=== PATIENT | female | born 1990 | race Caucasian/White ===

== ENCOUNTER 2016-05-14 09:11 | Emergency (ER) | payer OTHER ==
--- NOTE | ~2016-05-14 | CR63 ---
[facility] A Service of [facility] & [facility] RADIOLOGY TEXT RESULTS PATIENT: MARCO ANTONIO FERRERA LOCATION: SED : 88 UNIT #: [id number] AGE: [address]: Nuha Gandhi MD SEX: F ORDER DR: [id number] [address] [address] [id number] E MR#: [id number] Acc #: [id number] NAME: MARCO ANTONIO FERRERA : 1990 SEX: F STUDY DATE/TIME: 05/14/2016 10:31 UNIT: SED ROOM: STUDY DESCRIPTION: CR Chest 2 View Attending Physician: Nuha Gandhi M.D. Ordering Physician: Nuha Gandhi M.D. Primary Care Physician: Primary Care Physician No MEDICAL IMAGING REPORT This report is preliminary unless electronic signature is present. EXAM PA and lateral chest INDICATIONS 26-year-old female with cough and congestion for one and one-half weeks. Comparison with 05/10/2011 FINDINGS Lungs are well expanded and clear. Heart size normal. Visualized osseous structures unremarkable. Right upper quadrant surgical clips. IMPRESSION Negative chest Dictated by... Howard Galloway M.D. THIS IS AN ELECTRONICALLY VERIFIED REPORT Howard Galloway M.D. at 05/14/2016 4:28 PM ELY/hossein TD: 05/14/2016 11:55 JOB #: [id number] MEDICAL IMAGING REPORT Page 1 of 1
[~2016-05-14 09:11] MED LIST: ALDACTONE; ALDACTONE PO; BACTROBAN22 GM EXT; BIRTH CONTROL PILL; CELEXA PO; CELEXA10 MG PO; CIPRO PO; DIFLUCAN PO; DOXYCYCLINE HY100 M3 PO; FAMOTIDINE20 M1 PO; FIORINAL W/CODE1 CA1 PO; FLAGYL PO; FLONASE 0.05% N16 GM; K-DUR20 ME1 PO; LEXAPRO; MOBIC PO; MUCINEX DM1 TAB.SR . PO; MULTI VITAMIN1 EACH PO; NO MEDICATIONS; PRENATAL W/FOLI1 TA1 PO; ROBITUSSIN A-C S5 ML PO; VICODIN 5/1 TAB 5/50 PO; VISTARIL; VOLTAREN75 MG PO; ZITHROMAX PO; ZOFRAN ODT4 MG PO; ZOFRAN PO
[2016-05-14 10:04] LABS: URINE SOURCE CLEAN CATCH
[2016-05-14 10:06] LABS: URINE APPEARANCE CLEAR; URINE BILIRUBIN NEG (NEG); URINE BLOOD NEG (NEG); URINE COLOR YELLOW; URINE GLUCOSE NEG (NORM); URINE KETONE NEG (NEG); URINE LEUKOCYTE ESTERASE NEG (NEG); URINE NITRATE NEG (NEG); URINE PH 6.5 (5-8); URINE PROTEIN NEG (NEG); URINE UROBILINOGEN 0.2 MG/DL (NORM)
[2016-05-14 10:10] LABS: MICRO INDICATED? NO
[2016-05-16 15:04] LABS: CHLAMYDIA TRACH Not Detected (Not Detected); N GONOR Not Detected (Not Detected)
== END 2016-05-14 11:12 | disposition home or self-care (01) ==
LOC: SED 09:11
PROVIDERS: Emergency Medicine
DX: J20.9 Acute bronchitis, unspecified (principal); N39.3 Stress incontinence (female) (male); K21.9 Gastro-esophageal reflux disease without esophagitis; G43.909 Migraine, unspecified, not intractable, without status migrainosus; Z98.51 Tubal ligation status; F17.210 Nicotine dependence, cigarettes, uncomplicated
CPT/HCPCS: 71020; 81003; 84703; 87210; 87491; 87591; 87808; 87905; 94640; 99284

== ENCOUNTER 2016-07-20 13:12 | Emergency (ER) | payer OTHER ==
--- NOTE | ~2016-07-20 | US98 ---
[facility] A Service of [facility] & [facility] RADIOLOGY TEXT RESULTS PATIENT: MARCO ANTONIO FERRERA LOCATION: CFTX : 88 UNIT #: [id number] AGE: [address]: Sayra Moreno APRN SEX: F ORDER DR: [id number] [facility] [address] [place], [place] [address] [id number] E MR#: [id number] Acc #: [id number] NAME: MARCO ANTONIO FERRERA : 1990 SEX: F STUDY DATE/TIME: 07/20/2016 15:44 UNIT: CFTX ROOM: STUDY DESCRIPTION: US Pelvic Non-OB Complete Attending Physician: Sayra Moreno A.P.R.N. Ordering Physician: Ed Tomasz Armstrong M.D. Primary Care Physician: Primary Care Physician No MEDICAL IMAGING REPORT This report is preliminary unless electronic signature is present EXAM Pelvic ultrasound, 07/20/2016 HISTORY Pain. History of ovarian cyst. Lower midline abdomen pain for days. FINDINGS Real-time ultrasonography of the pelvic structures performed transabdominally and transvaginally. Transvaginal imaging utilized for better visualization of the uterine and adnexal structures. The uterus measures approximately 8.6 cm x 4.3 cm x 5.7 cm. There is a nabothian cyst at level of uterine cervix measuring about 8 mm in maximum diameter. Uterine myometrium otherwise unremarkable. The endometrial echo complex measures 9 mm in thickness. Normal value for a patient of this age. Trace amount of free fluid in the pelvis. The left ovary measures approximately 2.8 cm x 1.9 cm x 3.3 cm. It contains a complex cystic structure measuring approximately 1.9 cm x 1.5 cm x 1.5 cm. There is hypoechogenicity in the central portion of the structure. It has a relatively thick wall with some minimal peripheral vascularity. This most likely represents collapsing dominant follicular ovarian cyst for this menstrual cycle with internal evolving products of hemorrhage or debris. Arterial and venous flow noted in the left ovary. The right ovary is poorly visualized due to bowel gas artifact. It measures approximately 1.59 cm x 1.29 cm x 1.8 cm. There is evidence of arterial and venous flow in the right ovary. IMPRESSION 1. No acute abnormality is suggested involving the uterus. Small nabothian cyst at level of uterine cervix. Myometrium otherwise unremarkable. Endometrial echo complex normal in appearance. 2. Arterial and venous flow in the bilateral ovaries. The left ovary contains a complicated cystic structure measuring up to about 1.9 cm [facility] A Service of [facility] RADIOLOGY TEXT RESULTS PATIENT: MARCO ANTONIO FERRERA LOCATION: CFTX : [birth year] UNIT #: [id number] AGE: [address]: Sayra Moreno [employer] SEX: F ORDER DR: in maximum diameter likely representing collapsing dominant follicle for this menstrual cycle. There are some low-level internal echoes suggesting debris or evolving products of hemorrhage. 3. Trace amount of free fluid the pelvis, likely physiologic in nature. Dictated by... Pardeep Oliveira M.D. THIS IS AN ELECTRONICALLY VERIFIED REPORT Pardeep Oliveira M.D. at 07/21/2016 11:31 AM ASHLEE/vickie TD: 07/21/2016 02:07 JOB #: [id number] MEDICAL IMAGING REPORT Page 1 of 1 COPY
[2016-07-20 14:14] LABS: URINE SOURCE CLEAN CATCH
[2016-07-20 14:22] LABS: URINE APPEARANCE CLEAR; URINE BLOOD NEG (NEG); URINE COLOR DK YELLOW; URINE GLUCOSE NEG (NEG); URINE KETONE TRACE (NEG); URINE LEUKOCYTE ESTERASE NEG (NEG); URINE NITRATE NEG (NEG); URINE PROTEIN NEG (NEG); URINE SPECIFIC GRAVITY 1.035 (1.003-1.035)
[2016-07-20 14:27] LABS: URINE BILIRUBIN NEG (NEG)
[2016-07-20 14:28] LABS: CULTURE INDICATED? NO
[2016-07-22 22:12] LABS: CHLAMYDIA TRACH Not Detected (Not Detected); N GONOR Not Detected (Not Detected)
== END 2016-07-20 17:28 | disposition home or self-care (01) ==
LOC: CED 13:12 → CFTX 13:12
PROVIDERS: Nurse Practitioner
DX: N76.0 Acute vaginitis (principal); H33.11 Cyst of ora serrata; Z90.49 Acquired absence of other specified parts of digestive tract; F17.210 Nicotine dependence, cigarettes, uncomplicated
CPT/HCPCS: 76830; 76856; 81003; 84703; 87491; 87591; 87808; 87905; 99284

== ENCOUNTER 2016-10-29 21:38 | Emergency (ER) | payer OTHER ==
[~2016-10-29] VITALS: Ht 154.9 cm; Wt 72.6 kg
== END 2016-10-29 23:25 | disposition left against medical advice (07) ==
LOC: SED 21:38
DX: Z53.21 Procedure and treatment not carried out due to patient leaving prior to being seen by health care provider (principal)